=== PATIENT | male | born 1930 | race African-American/Black ===

== ENCOUNTER 2016-05-21 16:31 | Inpatient (IN) | payer MEDICARE, OTHER ==
--- NOTE | ~2016-05-21 | CN ---
Consultation Report [facility] [address] [facility] [place]. [address] NAME: MATHEUS RAGLAND : 32 STATUS : ADM IN [facility]#: [id number] AGE: 86 ADM/REG DATE : 05/21/16 MR#: [id number] REPORT SERV DATE: 05/22/16 DICTATED BY: RENARD TIDWELL DATE: 05/22/16 REPORT STATUS : Draft TRANSCRIBED BY: MODTressa DATE: 05/22/16 CARDIOLOGY CONSULTATION NOTE DATE OF CONSULTATION: 05/22/2016 REASON FOR CONSULTATION: Newly diagnosed atrial fibrillation with rapid ventricular response. HISTORY OF PRESENT ILLNESS: Mr. Ragland is an 86-year-old man with no previous cardiovascular history, excepting the possible history of undiagnosed murmur. The patient presently is in moderate respiratory distress, and a transfer to the intensive care unit is in progress. The patient is unable to provide useful history at this time. History is obtained from the medical records and also from the patient's , who is currently present at the bedside. The patient apparently has history of a hemorrhagic stroke several years ago. The believes that this is from an intracranial aneurysm. The patient did not require craniotomy for treatment however. He apparently has had decreased baseline mental status since his stroke. However, over the last five days, the patient has had insidious onset of fatigue and confusion. The patient was finally brought to the office of his primary care provider yesterday. The patient was found to be in atrial fibrillation with a rapid ventricular response. The patient was brought to the emergency room. He was started on a Cardizem drip. At this time, the patient's heart rate is well controlled, though the patient has suffered progressing decline in his mental status. He is currently on BiPAP with hypercarbic respiratory failure. The patient is to be transferred to the Cardiovascular Intensive Care Unit for further management. PAST MEDICAL HISTORY: 1. Hypertension. 2. Hemorrhagic stroke. 3. Hyperlipidemia. 4. Glaucoma. PAST SURGICAL HISTORY: Noncontributory. FAMILY HISTORY: Unknown. SOCIAL HISTORY: The patient apparently has no history of tobacco use. He consumes alcohol rarely and lives at home with his . ALLERGIES: THE PATIENT HAS AN ALLERGY TO NAPROSYN. HOME MEDICATIONS: 1. Albuterol nebulizers q.a.m. as needed. Consultation Report [facility] [address] [place]. [address] NAME: MATHEUS RAGLAND : 32 STATUS : ADM IN PAT#: [id number] AGE: 86 ADM/REG DATE : 05/21/16 MR#: [id number] REPORT SERV DATE: 05/22/16 DICTATED BY: RENARD TIDWELL DATE: 05/22/16 REPORT STATUS : Draft TRANSCRIBED BY: MELBA DATE: 05/22/16 2. Aspirin 81 mg p.o. daily. 3. Benazepril 20 mg p.o. daily. 4. Lumigan 0.01% ophthalmologic drops to both eyes daily. 5. Azopt ophthalmologic drops to both eyes twice daily. 6. Ibuprofen 600 mg p.o. twice daily as needed. 7. Multivitamin one tablet daily. 8. Crestor 20 mg p.o. at bedtime. 9. Vitamin A/vitamin C/vitamin E/zinc/copper supplement. REVIEW OF SYSTEMS: The patient is unable to provide a meaningful review of systems at this time. PHYSICAL EXAMINATION: VITAL SIGNS: The patient's heart rate is presently 92 beats per minute, temperature is 97.8 degrees Fahrenheit, blood pressure is 107/77 mmHg, respiratory rate is 25 with an oxygen saturation 94% on BiPAP. CONSTITUTIONAL: The patient is an obese elderly -Kyr[place] man, who is minimally responsive to questions, but is arousable. He is tachypneic on BiPAP with grossly decreased sensorium. EYES: PERRL, EOMI, clear conjunctiva. HEAD/MNT: NCAT with moist mucous membranes and grossly normal hard and soft palate. NECK: Supple with no obvious thyromegaly or lymphadenopathy CARDIOVASCULAR: Difficult exam due to transmitted upper airway sounds. There is an irregularly irregular rhythm with a variable S1. There is a grade 2/6 mid-peaking systolic murmur heard at the right upper sternal border. The jugular venous pressure could not be estimated. PULMONARY: Difficult exam; however, there are scattered bibasilar rales with globally decreased air movement. ABDOMINAL: Soft, obese, nontender with no gross organomegaly noted. EXTREMITIES: There is trace edema at the ankles bilaterally. MUSCULOSKELETAL: Grossly normal strength and range of motion in all extremities INTEGUMENTARY: Skin appears intact with no bruises, wounds or active lesions noted NEURO: Neurologic exam could not be performed. DATA: The 12-lead EKG: The patient's 12-lead EKG shows atrial fibrillation with a ventricular rate of 123 beats per minute. There are nonspecific ST/T-wave abnormalities. Chest x-ray: The chest x-ray is suggestive of mild pulmonary vascular congestion. CBC: The CBC shows a white blood cell count 7.6, hemoglobin 12, hematocrit 39, platelets 197. Chemistry profile shows sodium of 141, potassium 4.8, chloride is 102, CO2 of 33, BUN 55, creatinine 1.7, glucose is 98, albumin is 3.4. Troponin I is 0.06. B type natriuretic peptide is elevated at 526. A second troponin I is also 0.06. TSH is 2.07. The patient's Consultation Report [address] [place]. [address] NAME: MATHEUS RAGLAND : 32 STATUS : ADM IN [facility]#: [id number] AGE: 86 ADM/REG DATE : 05/21/16 MR#: [id number] REPORT SERV DATE: 05/22/16 DICTATED BY: RENARD TIDWELL DATE: 05/22/16 REPORT STATUS : Draft TRANSCRIBED BY: MELBA DATE: 05/22/16 serum ammonia is 61. Repeat ABG shows a pH of 7.18, pCO2 of 101, and pO2 of 83 on 32% FiO2. Urinalysis is not available. There is no CT scan of the head available. An echocardiogram is pending at this time. ASSESSMENT AND PLAN: 1. Altered mental status and hypercarbic respiratory failure. At this time, I do not feel that the patient's respiratory failure is primarily of cardiac etiology. The patient's heart rate is reasonably well controlled at this time on a Cardizem drip. The patient will be transferred to the CCU as planned for management of his respiratory failure. The patient will most likely require endotracheal intubation. Given the patient's altered mental status, a CT scan is recommended. Should this show no evidence of bleeding or recent stroke, consider starting a heparin drip for stroke prophylaxis given the patient's atrial fibrillation. 2. Systolic murmur. An echocardiogram is pending. The murmur is suggestive of mild aortic stenosis, though more significant valvular disease cannot be excluded at this time. The patient's LV systolic and diastolic function will be evaluated. We will consider diuresis after the patient has been otherwise stabilized. 3. Evaluation for obstructive sleep apnea. The patient has an apparent history of witnessed apneic events according to his . The reports that the patient has had a sleep study in the past which was abnormal, though this is not available. I have a high suspicion that many of the patient's symptoms may be due to untreated advanced sleep-disordered breathing. Thank you for allowing me to participate in the care Mr. Ragland. The Cardiology Service will continue to follow the patient closely during this hospital admission. MAYELA/MELBA Renard Tidwell MD / [id number] CC: Russ Fuller M.D.
--- NOTE | ~2016-05-21 | HP ---
History And Physical [address] [id number] [facility] [place]. [address] NAME: MATHEUS MYERS : 32 STATUS : ADM IN [facility]#: [id number] AGE: 86 ADM/REG DATE : 05/21/16 MR#: [id number] REPORT SERV DATE: 05/22/16 DICTATED BY: RONAL RAPP DATE: 05/21/16 REPORT STATUS : Draft TRANSCRIBED BY: MODL DATE: 05/21/16 DATE OF ADMISSION: 05/21/2016 CHIEF COMPLAINT: Shortness of breath and atrial fibrillation. HISTORY OF PRESENT ILLNESS: This is an 86-year-old gentleman with no apparent known cardiac history presenting with an atrial fibrillation with RVR as well as shortness of breath. Please note, the patient is an extremely poor historian and he was really not able to give a good history. The patient's was apparently present in the ER, but she is no longer available, and I tried calling her, but all the phone numbers listed did not work. This H and P is formulated from limited history gathered from the patient as well as from ER staff. The patient apparently went to his PCP's office for shortness of breath of unknown duration. At the office, the patient was apparently found to have atrial fibrillation with RVR which is new for him. The patient was referred to the ER for further evaluation and care. In the ER, the patient was found to be afebrile and hemodynamically stable. The patient was indeed found to be in atrial fibrillation with RVR with heart rate in the 130s. The patient was also mildly short of breath and required 2 L of oxygen to maintain adequate oxygen saturations. Initial lab evaluation was fairly benign with borderline troponin and slightly elevated BNP levels. EKG confirmed atrial fibrillation with RVR. Internal medicine consultation was requested for admission of the patient for further evaluation and care. REVIEW OF SYSTEMS: The patient denies any fevers or chills. Also, 14-point review of systems reviewed and negative other than mentioned above although I doubt the patient's ability to answer all the review of systems questions correctly. MEDICATIONS: 1. Albuterol nebulizer once in the morning and once in the evening as needed. 2. Aspirin 81 mg p.o. daily. 3. Lotensin 20 mg p.o. daily. 4. Lumigan eye drops. 5. Alphagan eye drops. 6. Azopt eyedrops. 7. Motrin 600 mg p.o. b.i.d. 8. Centrum one tab p.o. daily. 9. Crestor 20 mg p.o. at bedtime. 10.ICaps multivitamins p.o. b.i.d. ALLERGIES: NAPROXEN. PAST MEDICAL HISTORY: 1. Hypertension. 2. Hyperlipidemia. 3. Glaucoma. History And Physical [address] [address] NAME: MATHEUS MYERS : 32 STATUS : ADM IN PAT#: [id number] AGE: 86 ADM/REG DATE : 05/21/16 MR#: [id number] REPORT SERV DATE: 05/22/16 DICTATED BY: RONAL RAPP DATE: 05/21/16 REPORT STATUS : Draft TRANSCRIBED BY: MELBA DATE: 05/21/16 4. The patient apparently had a TIA a couple of years ago, and since then, the patient has been steadily declining. PAST SURGICAL HISTORY: Unknown. FAMILY HISTORY: Unknown. SOCIAL HISTORY: The patient does not smoke, consumes alcohol rarely, and he lives at home with his . PHYSICAL EXAMINATION: VITAL SIGNS: Temperature 98.7, blood pressure 135/82, pulse 130, respiratory rate is 19, and saturating 90% on 2 L of oxygen per nasal cannula. NEUROLOGIC: The patient is alert and oriented x3, but he is extremely poor historian. The patient otherwise exhibits no obvious focal neurologic deficits. GENERAL: The patient is awake. Does not appear to be in acute distress, and he is cooperative. NECK: No JVD. No lymphadenopathy. Normal thyroid. CHEST: No midline sternotomy scar and no tenderness to palpation. LUNGS: The patient has poor aeration to both lungs and some crackles and congestion across both lungs. The patient otherwise has fairly normal respiratory effort on 2 L of oxygen at rest. CARDIOVASCULAR: The patient has an irregular rhythm and tachycardic. Otherwise, no murmurs, rubs, or gallops, and PMI is nondisplaced. ABDOMEN: Soft and nontender, with active bowel sounds and no organomegaly. EXTREMITIES: No edema. Normal distal pulses. No calf tenderness. SKIN: Clean, dry, warm, and intact. LABORATORY DATA: Sodium is 141, potassium 4.8, chloride 102, BUN 55, creatinine 1.70, glucose 98, and calcium 8.9. LFTs are within normal limits. White blood cell count is 7.6, hemoglobin 12.1, and platelets 197. INR is 1.3, troponin is 0.06, and BNP is 525.6. Chest x-ray is personally interpreted, and although it did not show any pneumonia or effusions, it did show some right-sided atelectasis, and from my exam, it appears to be congested. ASSESSMENT: This is an 86-year-old gentleman with history of hypertension, hyperlipidemia, and glaucoma presenting with a new-onset atrial fibrillation. 1. New-onset atrial fibrillation with RVR, the patient apparently does not have any history of atrial fibrillation or any cardiac illnesses and he does not have a patternmaker. 2. Renal insufficiency with creatinine of 1.70, unknown baseline. 3. The patient also appears to be volume overloaded/possible congestive heart failure. 4. Hypertension. 5. Hyperlipidemia. 6. Glaucoma. PLAN: My plan is to admit the patient under telemetry monitoring. The patient will be given oxygen support and bronchodilator therapies. The patient will also be continued on the History And Physical [address] [address] NAME: MATHEUS MYERS MARCO A : 32 STATUS : ADM IN [facility]#: [id number] AGE: 86 ADM/REG DATE : 05/21/16 MR#: [id number] REPORT SERV DATE: 05/22/16 DICTATED BY: RONAL RAPP DATE: 05/21/16 REPORT STATUS : Draft TRANSCRIBED BY: MODTressa DATE: 05/21/16 Cardizem drip for better rate control. The patient will also be given IV Lasix diuresis, and I will check ins and outs and electrolytes and renal function daily as the patient is given the diuresis. I will also check serial troponins and TSH. Echocardiogram will be ordered, and I will also have Cardiology come and see the patient. Otherwise, for the rest of the stable past medical conditions including hypertension and hyperlipidemia, I will continue home medications. Standard DVT prophylaxis. The patient is full code at this time. LISA/MELBA Ronal Rapp MD / [id number] CC: Lucy Henson D.O.
--- NOTE | ~2016-05-21 | DS ---
Discharge Summary [facility] [address] [place]. [address] NAME: MATHEUS MYERS : 32 STATUS : DIS IN PAT#: [id number] AGE: 86 ADM/REG DATE : 05/21/16 MR#: [id number] REPORT SERV DATE: 06/01/16 DICTATED BY: SINDHU STOCKTON DATE: 06/01/16 REPORT STATUS : Draft TRANSCRIBED BY: MELBA DATE: 06/01/16 ADMISSION DATE: 05/21/2016 DISCHARGE DATE: 06/01/2016 DIAGNOSES: 1. Hypercapnic respiratory failure. 2. Atrial fibrillation with rapid ventricular response. 3. Encephalopathy secondary to hypercapnic respiratory failure, resolved. 4. Acute on chronic dysphagia. 5. Suspected obstructive sleep apnea. 6. Debility. CONSULTANTS: Cardiology, Dr. Tidwell and Critical Care, Dr. Ankush Yuan and Dr. Russ Menjivar. FOLLOWUP: The patient should follow up with Dr. Tidwell, the test and turn up technician, as needed and follow up with the primary care physician. The patient is being discharged home with [facility]. DISCHARGE MEDICATIONS: Eliquis 5 mg p.o. b.i.d., baby aspirin 81 mg p.o. daily, brimonidine one drop ophthalmic b.i.d., Voltaren topical gel to right foot q.6 hours p.r.n., digoxin 0.25 mg p.o. daily, Lumigan 0.01% ophthalmic drops q.h.s. per home dose, multivitamin, metoprolol tartrate 25 mg p.o. b.i.d., DuoNebs q.6 hours, albuterol neb p.r.n., Crestor 20 mg p.o. q.h.s. per home dose, Symbicort 160/4.5 two puffs inhaled b.i.d. HOSPITAL COURSE: Please see H and P dictated by Dr. Rapp. This is an 86 years old male with a past medical history of hypertension, hyperlipidemia, TIA, and worsening physical decline. The patient presented to [facility] ER with a chief complaint of shortness of breath and worsening debility, and found to be in atrial fibrillation with RVR. Apparently, the patient is already on home oxygen at home. Cardiology was consulted. The patient was started on a Cardizem drip. However, that day, the patient was seen by Dr. Russ Fuller and found to be in hypercapnic respiratory distress, placed on BiPAP, and transferred to the ICU and also treated for COPD and suspected underlying obstructive sleep apnea. The patient's metabolic encephalopathy was secondary to his hypercapnic failure. While in ICU, his mental status waxed and waned. He remained on BiPAP for the majority of the time and felt to be dependent on BiPAP and also required a Dobbhoff tube during that time for nutrition. Palliative Care was consulted while the patient was in ICU and due to the patient's status, the final decision with family/ was to return home with hospice. Critical Care discontinued the patient's BiPAP, placed the patient on oxygen, and the patient was transitioned to a regular bed and at that time, I attended care for the patient initiating on 05/30/2016, for which, at that time, the patient continued to do well on oxygen. However, it was recommended in order to consider BiPAP q.h.s. and also to consider an outpatient sleep study for suspected underlying obstructive sleep apnea. This was discussed with the patient and his . The patient remained alert and oriented while on regular floor. was informed that keeping his carbon dioxide level at baseline is for life- Discharge Summary [address] [address] NAME: MATHEUS MYERS MARCO A : 32 STATUS : DIS IN [facility]#: [id number] AGE: 86 ADM/REG DATE : 05/21/16 MR#: [id number] REPORT SERV DATE: 06/01/16 DICTATED BY: SINDHU STOCKTON DATE: 06/01/16 REPORT STATUS : Draft TRANSCRIBED BY: MELBA DATE: 06/01/16 saving measures. However, the patient refused any kind of face mask, does not want CPAP or BiPAP and the agrees. The patient has Speech Pathology consultation with modified barium swallow with recommendation of pureed diet and thin liquids. According to the , the patient has known chronic dysphagia and has been on a special diet prior to admission. Initially also after being transferred to the floor, the patient patient's was considering inpatient rehab considering that the patient's mental status had improved and the patient was tolerating a diet. However later, the once again changed her mind back to returning home with hospice due to the patient refusing inpatient rehab and wanted to follow the patient's wishes. Therefore, the patient and wanted to return to home with hospice. The patient refuses any kind of sleep study and does not want BiPAP or CPAP, and understands it is for life-saving measures. The patient was continued on digoxin and metoprolol for atrial fibrillation, rate control, and also initiated on Eliquis by Cardiology. The patient is to continue with medications at discharge, which has been explained to the . The patient was discharged to home with [facility]. This discharge required greater than 35 minutes. LIAT/MELBA Sindhu Stockton M.D. / [id number] CC: Lucy Perez
--- NOTE | ~2016-05-21 | DS ---
Discharge Summary [address] [place]. [address] NAME: MATHEUS MYERS : 32 STATUS : DIS IN PAT#: [id number] AGE: 86 ADM/REG DATE : 05/21/16 MR#: [id number] REPORT SERV DATE: 06/01/16 DICTATED BY: SINDHU STOCKTON DATE: 06/01/16 REPORT STATUS : Draft TRANSCRIBED BY: MELBA DATE: 06/01/16 ADMISSION DATE: 05/21/2016 DISCHARGE DATE: 06/01/2016 ADDENDUM: The patient will not be discharged with Eliquis. According to the , the patient has a history of recurrent epistasis in the past and easily bleeds, and also had a history of a hemorrhagic CVA approximately four years ago. The patient did have a mild streak of blood from productive cough. Eliquis was held. Remained stable; however, due to the patient's history of recurrent epistasis and history of hemorrhagic CVA, his Eliquis was discontinued. He will not be discharged with Eliquis, but will continue with aspirin. The understands that aspirin alone does not have the best preventive treatment for ischemic CVA from atrial fibrillation. She understands, but wants to continue to hold Eliquis at this time. LIAT/MELBA Sindhu Stockton M.D. / [id number] CC: Lucy Perez
--- NOTE | ~2016-05-21 | CN ---
Consultation Report [facility] [address] [place]. [address] NAME: MATHEUS MYERS : 32 STATUS : ADM IN [facility]#: [id number] AGE: 86 ADM/REG DATE : 05/21/16 MR#: [id number] REPORT SERV DATE: 05/22/16 DICTATED BY: JOSE YUAN DATE: 05/22/16 REPORT STATUS : Draft TRANSCRIBED BY: MODL DATE: 05/22/16 CONSULTATION DATE OF CONSULTATION: 05/22/2016 TIME: 3 p.m. The patient is seen in room 6113. HISTORY OF PRESENT ILLNESS: He is an 86-year-old male patient admitted to the hospital this time because of atrial fibrillation with RVR. According to his , he has been progressively more weak over the past several months with walking and ability to stay awake. Falls asleep constantly. Legs have been swelling. When I arrived, Dr. Fuller had placed the patient on BiPAP because of hypercapnic respiratory acidosis. PAST MEDICAL HISTORY: Significant for hemorrhagic CVA, taken care of at [place] in the past. He has had a previous operation for a trigeminal neuralgia. He has macular degeneration, glaucoma. REVIEW OF SYSTEMS: As noted above. No history of diabetes. No prior history of heart or cardiac disease that they are aware of. 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 FAMILY HISTORY: Noncontributory. ALLERGIES: NAPROSYN. HOME MEDICATIONS: Albuterol nebulizer, aspirin 81 mg daily, Lotensin 20, Lumigan 0.01%, drops of Alphagan P ophthalmic solution 0.15, Azopt which is brinzolamide 1 drop OPH twice a day both eyes, Motrin 600 mg twice a day p.r.n., , Crestor 20 daily. Vitamin A, vitamin C, vitamin E, zinc and copper capsules, 1 capsule twice a day. PHYSICAL EXAMINATION: VITAL SIGNS: Currently, his vital signs show a blood pressure of 103/56, pulse 93, temperature 97.8, sat 92. GENERAL: The patient is an obese, male. HEENT: Normocephalic. Sclerae and conjunctivae are clear. NECK: Supple. Neck is large. CHEST: Decreased breath sounds. No wheezing. CARDIAC: S1, S2. Slightly irregular. ABDOMEN: Soft and nontender. No masses or organomegaly. . EXTREMITIES: No clubbing or cyanosis. Slight edema, +1. Pulses are palpable. NEUROLOGIC: Grossly intact except for mild weakness in the left upper extremity. LABORATORY DATA: Sodium is 142, potassium 4.9, chloride 103, CO2 39, BUN 55, creatinine Consultation Report [place] [id number] [facility] [place]. [address] NAME: MATHEUS MYERS : 32 STATUS : ADM IN [facility]#: [id number] AGE: 86 ADM/REG DATE : 05/21/16 MR#: [id number] REPORT SERV DATE: 05/22/16 DICTATED BY: JOSE YUAN DATE: 05/22/16 REPORT STATUS : Draft TRANSCRIBED BY: MODL DATE: 05/22/16 1.62, glucose 100, calcium 9.0. Troponin 0.06. H and H 7.6 and 29.2, white count 8600, platelet count 5000. PH 7.18, pCO2 of 101, PO2 of 83, 36%. TSH 2.02. Troponin 0.06. Chest x-ray also clear. IMPRESSION: 1. Hypercapnic respiratory failure. 2. Probably obesity hypoventilation syndrome. 3. Chronic obstructive pulmonary disease. 4. Obstructive sleep apnea. 5. Previous history of hemorrhagic stroke. 6. Metabolic encephalopathy, probably induced by hyperventilation. PLAN: Place on BiPAP. Move to the ICU. Continue bronchodilator protocol. RP/JACEKL Jose Yuan M.D. / [id number] CC: Lucy Edwards D.O.
--- NOTE | ~2016-05-21 | IDS ---
Interim Discharge Summary [facility] [address] [place]. [address] NAME: MATHEUS MYESR : 34 STATUS : ADM IN PAT#: [id number] AGE: 86 ADM/REG DATE : 05/21/16 MR#: [id number] REPORT SERV DATE: 05/27/16 DICTATED BY: GEOVANNA DUMONT DATE: 05/27/16 REPORT STATUS : Draft TRANSCRIBED BY: MODL DATE: 05/27/16 ADMISSION DATE: 05/21/2016 DISCHARGE DATE: DATE OF INTERIM SUMMARY: 05/27/2016. INTERIM DIAGNOSES: 1. Acute hypercapnic respiratory failure. 2. Atrial fibrillation with rapid ventricular response. 3. Acute encephalopathy. 4. Dysphagia. 5. History of cerebrovascular accident. 6. Obstructive sleep apnea. 7. Possible obesity hypoventilation syndrome. ICU COURSE: Please see dictated H and P for full patient presentation and history. BRIEF SUMMARY: This is an 86-year-old gentleman with a past medical history of CVA with declining mental status at home recently, who presented to the hospital with rapid ventricular response, acute hypercapnic respiratory failure, and volume overload. The patient was admitted briefly to the floor, but then had to be moved subsequently to the ICU on the day of admission for BiPAP therapy and hypercapnic respiratory failure as well as a diltiazem drip to control the atrial fibrillation. The patient has not made a whole lot of progress this week in the ICU. He has remained almost BiPAP dependent for his hypercapnic respiratory failure likely due to underlying sleep apnea and/or obesity hypoventilation syndrome in the setting of poorly controlled heart rate. He is being followed by Cardiology, who has been helping manage his heart rate. He has been on and off both amiodarone drips and diltiazem drips during the week and has had episodes of bradycardia as well. So, it has been difficult to control this. The patient has been encephalopathic throughout the week that waxes and wanes. It is probably related to his hypercapnia as well. He also has dysphagia and has been kept n.p.o. and has tube feeds going. The patient's family says he had declining mental status before this at home and had a stroke several years ago. Given his lack of progress this week, we had Palliative Care involved. The patient has expressed wishes and his agrees and he is a do not resuscitate. Currently, the goal is to attempt to get the patient to where he is off BiPAP for most of the day and rate control on p.o. medications in an attempt to potentially get the patient home with hospice. I am going to be marking this week, and we will try to keep him off the BiPAP during the day and sleep with the night and then we and Palliative Care will re- evaluate on Saturday, how he is doing and work on disposition plans. The [employer] dining car stewardess will assume care of the patient tomorrow. Please call if you have any questions. ERIK/MELBA Geovanna Barba Interim Discharge Summary [address] [address] NAME: MATHEUS MYERS MARCO A : 34 STATUS : ADM IN PAT#: [id number] AGE: 86 ADM/REG DATE : 05/21/16 MR#: [id number] REPORT SERV DATE: 05/27/16 DICTATED BY: GEOVANNA DUMONT DATE: 05/27/16 REPORT STATUS : Draft TRANSCRIBED BY: MELBA DATE: 05/27/16 MD Otto / [id number] CC: Geovanna Fuller M.D.
[2016-05-21 17:18] LABS: BASOPHILS 0.5 %; BASOPHILS ABSOLUTE 0.04 10/3/uL (0.0-0.16); EOSINOPHILS 1.1 %; EOSINOPHILS ABSOLUTE 0.08 10/3/uL (0.0-0.53); HEMATOCRIT 39.1 % (40.0-51.0); HEMOGLOBIN 12.1 g/dL (13.6-17.8); IMMATURE GRANULOCYTES 0.4 %; IMMATURE GRANULOCYTES ABSOLUTE 0.03 10/3/uL (0.0-0.11); LYMPHOCYTES 13.1 %; MEAN CORPUSCULAR HEMOGLOB 28.4 pg (26.0-34.0); MEAN PLATELET VOLUME 10.2 fL (9.2-13.0); MONOCYTES 14.1 %; MONOCYTES ABSOLUTE 1.07 10/3/uL (0.21-1.20); NEUTROPHILS 70.8 %; NEUTROPHILS ABSOLUTE 5.39 10/3/uL (2.02-8.40); PLATELET COUNT 197 10/3/uL (150-400); RBC DISTRIBUTION WIDTH 14.8 % (12.0-16.0); RED CELL COUNT 4.26 10/6/uL (4.7-6.1); WHITE BLOOD CELLS 7.6 10/3/uL (4.5-10.5)
[2016-05-21 17:19] LABS: MANUAL DIFF NO %; MEAN CORPUS HGB CONC 30.9 g/dL (32.0-36.0); MEAN CORPUSCULAR VOLUME 91.8 fL (80-100)
[2016-05-21] MEDS ORDERED: ICAPS AREDS SO1 EACH PO (17:21)
[2016-05-21] MEDS ORDERED: AZOPT OPH (17:22)
[2016-05-21] MEDS ORDERED: ALPHAGAN OPH (17:22)
[2016-05-21] MEDS ORDERED: LUMIGAN2.5 ML OPH (17:22)
[2016-05-21] MEDS ORDERED: CRESTOR20 MG PO (17:23)
[2016-05-21] MEDS ORDERED: CENTRUM PO (17:23)
[2016-05-21] MEDS ORDERED: IBU600 PO (17:23)
[2016-05-21] MEDS ORDERED: ASAB PO (17:23)
[2016-05-21] MEDS ORDERED: LOTE20 PO (17:24)
[2016-05-21] MEDS ORDERED: ALBUTEROL0.083 % INH ×2 (17:25)
[2016-05-21 17:30] LABS: INTERNATIONAL NORMAL RATI 1.3 UNITS (-); PROTIME (NOT ORD) 15.7 SEC (12.0-14.5)
[2016-05-21 17:35] LABS: A/G RATIO 0.9 (0.7-1.9); ALBUMIN 3.4 G/DL (3.5-5.0); ALKALINE PHOSPHATASE 60 U/L (45-117); BUN (BLOOD UREA NITROGEN) 55 MG/DL (6-23); CALCIUM, SERUM 8.9 MG/DL (8.5-10.4); CHLORIDE, SERUM 102 MMOL/L (96-112); CO2 (CARBON DIOXIDE) 33 MMOL/L (24-34); GFR AFRICAN AMERICAN 42 ML/MIN (>=60); GFR NON AFRICAN AMERICAN 36 ML/MIN (>=60); GLOBULIN 3.8 G/DL (2.5-4.1); GLUCOSE, SERUM 98 MG/DL (60-99); POTASSIUM, SERUM 4.8 MMOL/L (3.5-5.3); SGOT(AST) 10 U/L (5-40); SGPT(ALT) 25 U/L (5-65); SODIUM, SERUM 141 MMOL/L (135-148); TOTAL BILIRUBIN 0.4 MG/DL (0-1.2); TOTAL PROTEIN 7.2 G/DL (6.0-8.5); TROPONIN I 0.06 NG/ML (<0.05)
[2016-05-21 22:17] LABS: ULTRASENSITIVE TSH 2.07 MCIU/ML (0.358-3.740)
[2016-05-21 22:18] LABS: TROPONIN I 0.06 NG/ML (<0.05)
[2016-05-22 03:28] LABS: BASOPHILS 0.6 %; BASOPHILS ABSOLUTE 0.05 10/3/uL (0.0-0.16); EOSINOPHILS 1.2 %; HEMATOCRIT 39.2 % (40.0-51.0); HEMOGLOBIN 11.6 g/dL (13.6-17.8); IMMATURE GRANULOCYTES 0.6 %; IMMATURE GRANULOCYTES ABSOLUTE 0.05 10/3/uL (0.0-0.11); LYMPHOCYTES 13.9 %; LYMPHOCYTES ABSOLUTE 1.19 10/3/uL (0.67-4.30); MANUAL DIFF NO %; MEAN CORPUS HGB CONC 29.6 g/dL (32.0-36.0); MEAN CORPUSCULAR HEMOGLOB 27.4 pg (26.0-34.0); MEAN CORPUSCULAR VOLUME 92.7 fL (80-100); MEAN PLATELET VOLUME 10.2 fL (9.2-13.0); MONOCYTES 16.3 %; NEUTROPHILS 67.4 %; NEUTROPHILS ABSOLUTE 5.78 10/3/uL (2.02-8.40); PLATELET COUNT 205 10/3/uL (150-400); RBC DISTRIBUTION WIDTH 14.9 % (12.0-16.0); RED CELL COUNT 4.23 10/6/uL (4.7-6.1); WHITE BLOOD CELLS 8.6 10/3/uL (4.5-10.5)
[2016-05-22 03:47] LABS: BUN (BLOOD UREA NITROGEN) 55 MG/DL (6-23); CALCIUM, SERUM 9.1 MG/DL (8.5-10.4); CHLORIDE, SERUM 103 MMOL/L (96-112); CO2 (CARBON DIOXIDE) 34 MMOL/L (24-34); CREATININE 1.62 MG/DL (0.70-1.30); GFR AFRICAN AMERICAN 45 ML/MIN (>=60); GFR NON AFRICAN AMERICAN 38 ML/MIN (>=60); GLUCOSE, SERUM 100 MG/DL (60-99); POTASSIUM, SERUM 4.9 MMOL/L (3.5-5.3); SODIUM, SERUM 142 MMOL/L (135-148)
[2016-05-22 03:48] LABS: TROPONIN I 0.06 NG/ML (<0.05)
[2016-05-22 11:57] LABS: ALLENS TEST Pos; BE (BASE EXCESS) 5.4 MEQ/L (0 +/- 2.5); CARBOXYHEMOGLOBIN 0.9 % (0-3); DEVICE NC; HCO3 (ACTUAL BICARBONATE) 37.2 MEQ/L (23-27); HEMOBLOGIN CONTENT 13.2 G/DL (14-18); INSTRUMENT SERIAL # 35151; METHEMOGLOBIN 0.5 % (0-3); O2 CONTENT 17.3 VOL% (18-24); PCO2 (CO2 TENSION) 101 MMHG (35-45); PO2 (O2 TENSION) 83 MMHG (79-93); SAMPLE Arterial; pH 7.18 (7.37-7.43)
[2016-05-22 13:25] LABS: FERRITIN 90 NG/ML (26-388); IRON BINDING CAPACITY 244 MCG/DL (250-450); IRON, SERUM 42 MCG/DL (35-150)
[2016-05-22 15:19] LABS: ALLENS TEST Pos; BE (BASE EXCESS) 4.4 MEQ/L (0 +/- 2.5); BIPAP 18/10 cm.H2O; HCO3 (ACTUAL BICARBONATE) 35.1 MEQ/L (23-27); INSTRUMENT SERIAL # 35151; METHEMOGLOBIN 0.5 % (0-3); O2 CONTENT 17.1 VOL% (18-24); OPERATOR ID 35188; PCO2 (CO2 TENSION) 89 MMHG (35-45); PO2 (O2 TENSION) 85 MMHG (79-93); SAMPLE Arterial; pH 7.21 (7.37-7.43)
[2016-05-22 18:01] LABS: ALLENS TEST Pos; BE (BASE EXCESS) 4.4 MEQ/L (0 +/- 2.5); BIPAP 18/10 cm.H2O; CARBOXYHEMOGLOBIN 0.7 % (0-3); HCO3 (ACTUAL BICARBONATE) 34.5 MEQ/L (23-27); HEMOBLOGIN CONTENT 12.7 G/DL (14-18); INSTRUMENT SERIAL # 35151; METHEMOGLOBIN 0.5 % (0-3); O2 CONTENT 17.3 VOL% (18-24); OPERATOR ID 35188; PCO2 (CO2 TENSION) 84 MMHG (35-45); PO2 (O2 TENSION) 106 MMHG (79-93); SAMPLE Arterial; pH 7.23 (7.37-7.43)
[2016-05-22 20:51] LABS: ASCORBIC ACID (UR NOT ORDER) 40 (NEG); BILIRUBIN, URINE NEGATIVE (NEG); KETONE, URINE NEGATIVE (NEG); LEUKOCYTE ESTERASE(NOT OR SMALL (NEG); WBC (NOT ORDERED) (RFLEX) 18 (0-5)
[2016-05-23 05:16] LABS: HEMATOCRIT 39.1 % (40.0-51.0); HEMOGLOBIN 11.7 g/dL (13.6-17.8); MANUAL DIFF YES %; MEAN CORPUS HGB CONC 29.9 g/dL (32.0-36.0); MEAN CORPUSCULAR HEMOGLOB 27.7 pg (26.0-34.0); MEAN CORPUSCULAR VOLUME 92.7 fL (80-100); MEAN PLATELET VOLUME 10.6 fL (9.2-13.0); PLATELET COUNT 176 10/3/uL (150-400); RBC DISTRIBUTION WIDTH 14.9 % (12.0-16.0); RED CELL COUNT 4.22 10/6/uL (4.7-6.1); WHITE BLOOD CELLS 8.4 10/3/uL (4.5-10.5)
[2016-05-23 05:49] LABS: BAND NEUTROPHILS 3 %; BASOPHILS 2 %; BASOPHILS ABSOLUTE (CALC) 0.17 10/3/uL (0.0-0.16); LYMPHOCYTES 7 %; LYMPHOCYTES ABSOLUTE (CALC) 0.59 10/3/uL (0.67-4.30); MONOCYTES 7 %; MONOCYTES ABSOLUTE (CALC) 0.59 10/3/uL (0.21-1.20); NEUTROPHILS ABSOLUTE (CALC) 7.06 10/3/uL (2.02-8.40); SEGMENTED NEUTROPHIL (0) 81 %; TOTAL NUCLEATED CELLS 100
[2016-05-23 05:50] LABS: PLATELET ESTIMATE ADQ (ADEQUATE); RBC MORPHOLOGY NORM (NORMAL)
[2016-05-23 05:51] LABS: BE (BASE EXCESS) 6.9 MEQ/L (0 +/- 2.5); BIPAP 18/10 cm.H2O; CARBOXYHEMOGLOBIN 0.5 % (0-3); HCO3 (ACTUAL BICARBONATE) 36.3 MEQ/L (23-27); HEMOBLOGIN CONTENT 12.7 G/DL (14-18); INSTRUMENT SERIAL # 35151; METHEMOGLOBIN 0.5 % (0-3); O2 CONTENT 16.9 VOL% (18-24); PCO2 (CO2 TENSION) 79 MMHG (35-45); PO2 (O2 TENSION) 84 MMHG (79-93); SAMPLE Arterial; pH 7.28 (7.37-7.43)
[2016-05-23 07:49] LABS: BUN (BLOOD UREA NITROGEN) 54 MG/DL (6-23); CALCIUM, SERUM 9.1 MG/DL (8.5-10.4); CHLORIDE, SERUM 102 MMOL/L (96-112); CO2 (CARBON DIOXIDE) 35 MMOL/L (24-34); CREATININE 1.57 MG/DL (0.70-1.30); GFR AFRICAN AMERICAN 46 ML/MIN (>=60); GFR NON AFRICAN AMERICAN 40 ML/MIN (>=60); GLUCOSE, SERUM 85 MG/DL (60-99); SODIUM, SERUM 144 MMOL/L (135-148); TROPONIN I 0.05 NG/ML (<0.05)
[2016-05-23 12:00] LABS: A/G 1.35 RATIO (0.9-2.10); ALB RELATIVE % 57.4 % (60.0-89.0); ALBUMIN (ELECTRO) 4.02 GM/DL (3.2-5.5); ALPHA 1 (ELECTRO) 0.22 GM/DL (0.1-0.4); ALPHA 1 RELAT % (NOT ORD) 3.2 % (1.0-4.0); ALPHA 2 (ELECTRO) 0.69 GM/DL (0.5-1.10); ALPHA 2 RELAT % 9.8 % (4.5-26.0); BETA GLOBULIN (SPE) 0.76 GM/DL (0.60-1.30); BETA RELATIVE % 10.8 % (9.0-22.0); GAMMA GLOBULIN (SPE) 1.32 G/DL (0.70-1.60); GAMMA RELAT % 18.8 % (6.0-22.0)
[2016-05-23 15:07] LABS: ALLENS TEST Pos; BE (BASE EXCESS) 8.3 MEQ/L (0 +/- 2.5); CARBOXYHEMOGLOBIN 0.5 % (0-3); DEVICE VM; HCO3 (ACTUAL BICARBONATE) 36.7 MEQ/L (23-27); HEMOBLOGIN CONTENT 12.9 G/DL (14-18); INSTRUMENT SERIAL # 35151; METHEMOGLOBIN 0.6 % (0-3); PCO2 (CO2 TENSION) 71 MMHG (35-45); PO2 (O2 TENSION) 81 MMHG (79-93); SAMPLE Arterial; pH 7.33 (7.37-7.43)
[2016-05-24 04:17] LABS: ALLENS TEST Pos; BE (BASE EXCESS) 5.6 MEQ/L (0 +/- 2.5); BIPAP 15/5 cm.H2O; CARBOXYHEMOGLOBIN 0.6 % (0-3); HCO3 (ACTUAL BICARBONATE) 33.6 MEQ/L (23-27); HEMOBLOGIN CONTENT 12.5 G/DL (14-18); INSTRUMENT SERIAL # 35151; METHEMOGLOBIN 0.5 % (0-3); OPERATOR ID 13861; PCO2 (CO2 TENSION) 67 MMHG (35-45); PO2 (O2 TENSION) 70 MMHG (79-93); SAMPLE Arterial; pH 7.32 (7.37-7.43)
[2016-05-24 09:33] LABS: BASOPHILS 0.3 %; BASOPHILS ABSOLUTE 0.03 10/3/uL (0.0-0.16); EOSINOPHILS 0.9 %; EOSINOPHILS ABSOLUTE 0.08 10/3/uL (0.0-0.53); HEMATOCRIT 41.1 % (40.0-51.0); HEMOGLOBIN 12.4 g/dL (13.6-17.8); IMMATURE GRANULOCYTES 0.2 %; IMMATURE GRANULOCYTES ABSOLUTE 0.02 10/3/uL (0.0-0.11); LYMPHOCYTES 10.1 %; LYMPHOCYTES ABSOLUTE 0.87 10/3/uL (0.67-4.30); MEAN CORPUS HGB CONC 30.2 g/dL (32.0-36.0); MEAN CORPUSCULAR HEMOGLOB 27.6 pg (26.0-34.0); MEAN CORPUSCULAR VOLUME 91.3 fL (80-100); MEAN PLATELET VOLUME 10.4 fL (9.2-13.0); MONOCYTES 10.2 %; MONOCYTES ABSOLUTE 0.88 10/3/uL (0.21-1.20); NEUTROPHILS 78.3 %; NEUTROPHILS ABSOLUTE 6.72 10/3/uL (2.02-8.40); PLATELET COUNT 169 10/3/uL (150-400); RBC DISTRIBUTION WIDTH 14.7 % (12.0-16.0); WHITE BLOOD CELLS 8.6 10/3/uL (4.5-10.5)
[2016-05-24 09:38] LABS: MANUAL DIFF NO %
[2016-05-24 09:45] LABS: ALBUMIN 3.2 G/DL (3.5-5.0); CHLORIDE, SERUM 98 MMOL/L (96-112); CO2 (CARBON DIOXIDE) 39 MMOL/L (24-34); CREATININE 1.31 MG/DL (0.70-1.30); GFR AFRICAN AMERICAN 58 ML/MIN (>=60); GFR NON AFRICAN AMERICAN 50 ML/MIN (>=60); POTASSIUM, SERUM 4.4 MMOL/L (3.5-5.3); SODIUM, SERUM 141 MMOL/L (135-148)
[2016-05-24 09:46] LABS: BUN (BLOOD UREA NITROGEN) 44 MG/DL (6-23); GLUCOSE, SERUM 112 MG/DL (60-99)
[2016-05-24 15:08] LABS: A/G RATIO 0.8 (0.7-1.9); ALKALINE PHOSPHATASE 57 U/L (45-117); GLOBULIN 3.9 G/DL (2.5-4.1); PREALBUMIN 15.3 MG/DL (17.0-43.0); SGOT(AST) 16 U/L (5-40); SGPT(ALT) 19 U/L (5-65); TOTAL BILIRUBIN 0.5 MG/DL (0-1.2); TOTAL PROTEIN 7.1 G/DL (6.0-8.5)
[2016-05-25 03:43] LABS: BE (BASE EXCESS) 11.4 MEQ/L (0 +/- 2.5); CARBOXYHEMOGLOBIN 0.9 % (0-3); HCO3 (ACTUAL BICARBONATE) 40.3 MEQ/L (23-27); HEMOBLOGIN CONTENT 12.7 G/DL (14-18); INSTRUMENT SERIAL # 35151; METHEMOGLOBIN 0.4 % (0-3); O2 CONTENT 17.2 VOL% (18-24); PCO2 (CO2 TENSION) 77 MMHG (35-45); PO2 (O2 TENSION) 97 MMHG (79-93); pH 7.34 (7.37-7.43)
[2016-05-25 03:44] LABS: ALLENS TEST Pos; BIPAP 15/5 cm.H2O; OPERATOR ID 23712; SAMPLE Arterial
[2016-05-25 04:59] LABS: CALCIUM, SERUM 8.6 MG/DL (8.5-10.4); CHLORIDE, SERUM 100 MMOL/L (96-112); CO2 (CARBON DIOXIDE) 37 MMOL/L (24-34); CREATININE 1.18 MG/DL (0.70-1.30); GFR AFRICAN AMERICAN 65 ML/MIN (>=60); GFR NON AFRICAN AMERICAN 56 ML/MIN (>=60); PHOSPHORUS, SERUM 3.6 MG/DL (2.5-4.5); POTASSIUM, SERUM 4.2 MMOL/L (3.5-5.3); SODIUM, SERUM 143 MMOL/L (135-148)
[2016-05-25 05:02] LABS: BUN (BLOOD UREA NITROGEN) 34 MG/DL (6-23); GLUCOSE, SERUM 159 MG/DL (60-99)
[2016-05-25 05:29] LABS: BASOPHILS 0.4 %; BASOPHILS ABSOLUTE 0.03 10/3/uL (0.0-0.16); EOSINOPHILS 1.7 %; EOSINOPHILS ABSOLUTE 0.13 10/3/uL (0.0-0.53); HEMOGLOBIN 11.4 g/dL (13.6-17.8); IMMATURE GRANULOCYTES 0.1 %; IMMATURE GRANULOCYTES ABSOLUTE 0.01 10/3/uL (0.0-0.11); LYMPHOCYTES ABSOLUTE 1.08 10/3/uL (0.67-4.30); MEAN CORPUSCULAR HEMOGLOB 27.5 pg (26.0-34.0); MEAN CORPUSCULAR VOLUME 88.9 fL (80-100); MEAN PLATELET VOLUME 10.3 fL (9.2-13.0); MONOCYTES ABSOLUTE 0.23 10/3/uL (0.21-1.20); NEUTROPHILS 80.8 %; NEUTROPHILS ABSOLUTE 6.25 10/3/uL (2.02-8.40); PLATELET COUNT 155 10/3/uL (150-400); RBC DISTRIBUTION WIDTH 14.9 % (12.0-16.0); RED CELL COUNT 4.14 10/6/uL (4.7-6.1); WHITE BLOOD CELLS 7.7 10/3/uL (4.5-10.5)
[2016-05-25 05:31] LABS: HEMATOCRIT 36.8 % (40.0-51.0); MANUAL DIFF NO %
[2016-05-25 05:40] LABS: TROPONIN I 0.06 NG/ML (<0.05)
[2016-05-25 06:21] LABS: ALLENS TEST Pos; BE (BASE EXCESS) 10.4 MEQ/L (0 +/- 2.5); BIPAP 20/8 cm.H2O; CARBOXYHEMOGLOBIN 0.5 % (0-3); HCO3 (ACTUAL BICARBONATE) 38.5 MEQ/L (23-27); INSTRUMENT SERIAL # 35151; METHEMOGLOBIN 0.4 % (0-3); O2 CONTENT 17.5 VOL% (18-24); OPERATOR ID 13861; PCO2 (CO2 TENSION) 69 MMHG (35-45); PO2 (O2 TENSION) 91 MMHG (79-93); SAMPLE Arterial; pH 7.37 (7.37-7.43)
[2016-05-26 05:11] LABS: BUN (BLOOD UREA NITROGEN) 29 MG/DL (6-23); CALCIUM, SERUM 8.5 MG/DL (8.5-10.4); CHLORIDE, SERUM 102 MMOL/L (96-112); CO2 (CARBON DIOXIDE) 34 MMOL/L (24-34); CREATININE 1.11 MG/DL (0.70-1.30); GFR AFRICAN AMERICAN 70 ML/MIN (>=60); GFR NON AFRICAN AMERICAN 61 ML/MIN (>=60); GLUCOSE, SERUM 140 MG/DL (60-99); PHOSPHORUS, SERUM 2.7 MG/DL (2.5-4.5); POTASSIUM, SERUM 3.8 MMOL/L (3.5-5.3); SODIUM, SERUM 142 MMOL/L (135-148)
[2016-05-26 07:05] LABS: BASOPHILS 0.2 %; BASOPHILS ABSOLUTE 0.02 10/3/uL (0.0-0.16); EOSINOPHILS 3.5 %; EOSINOPHILS ABSOLUTE 0.33 10/3/uL (0.0-0.53); HEMOGLOBIN 12.5 g/dL (13.6-17.8); LYMPHOCYTES 17.7 %; LYMPHOCYTES ABSOLUTE 1.65 10/3/uL (0.67-4.30); MEAN CORPUS HGB CONC 30.9 g/dL (32.0-36.0); MEAN CORPUSCULAR HEMOGLOB 27.5 pg (26.0-34.0); MONOCYTES 4.6 %; MONOCYTES ABSOLUTE 0.43 10/3/uL (0.21-1.20); NEUTROPHILS ABSOLUTE 6.88 10/3/uL (2.02-8.40); PLATELET COUNT 154 10/3/uL (150-400); RBC DISTRIBUTION WIDTH 15.1 % (12.0-16.0); RED CELL COUNT 4.55 10/6/uL (4.7-6.1); WHITE BLOOD CELLS 9.3 10/3/uL (4.5-10.5)
[2016-05-26 07:07] LABS: HEMATOCRIT 40.5 % (40.0-51.0); MANUAL DIFF NO %
[2016-05-27 05:36] LABS: BASOPHILS 0.2 %; BASOPHILS ABSOLUTE 0.02 10/3/uL (0.0-0.16); EOSINOPHILS ABSOLUTE 0.44 10/3/uL (0.0-0.53); HEMATOCRIT 40.7 % (40.0-51.0); HEMOGLOBIN 12.3 g/dL (13.6-17.8); IMMATURE GRANULOCYTES 0.1 %; IMMATURE GRANULOCYTES ABSOLUTE 0.01 10/3/uL (0.0-0.11); LYMPHOCYTES 16.2 %; LYMPHOCYTES ABSOLUTE 1.41 10/3/uL (0.67-4.30); MANUAL DIFF NO %; MEAN CORPUS HGB CONC 30.2 g/dL (32.0-36.0); MEAN CORPUSCULAR VOLUME 89.3 fL (80-100); MEAN PLATELET VOLUME 10.8 fL (9.2-13.0); MONOCYTES 4.1 %; MONOCYTES ABSOLUTE 0.36 10/3/uL (0.21-1.20); NEUTROPHILS 74.4 %; NEUTROPHILS ABSOLUTE 6.49 10/3/uL (2.02-8.40); PLATELET COUNT 153 10/3/uL (150-400); RBC DISTRIBUTION WIDTH 15.1 % (12.0-16.0); RED CELL COUNT 4.56 10/6/uL (4.7-6.1); WHITE BLOOD CELLS 8.7 10/3/uL (4.5-10.5)
[2016-05-27 05:52] LABS: BUN (BLOOD UREA NITROGEN) 24 MG/DL (6-23); CALCIUM, SERUM 8.8 MG/DL (8.5-10.4); CHLORIDE, SERUM 100 MMOL/L (96-112); CO2 (CARBON DIOXIDE) 35 MMOL/L (24-34); CREATININE 1.03 MG/DL (0.70-1.30); GFR AFRICAN AMERICAN 77 ML/MIN (>=60); GFR NON AFRICAN AMERICAN 66 ML/MIN (>=60); GLUCOSE, SERUM 123 MG/DL (60-99); POTASSIUM, SERUM 3.6 MMOL/L (3.5-5.3); SODIUM, SERUM 144 MMOL/L (135-148)
[2016-05-28 03:54] LABS: BASOPHILS 0.1 %; BASOPHILS ABSOLUTE 0.01 10/3/uL (0.0-0.16); EOSINOPHILS 5.6 %; EOSINOPHILS ABSOLUTE 0.49 10/3/uL (0.0-0.53); HEMATOCRIT 39.4 % (40.0-51.0); HEMOGLOBIN 11.5 g/dL (13.6-17.8); IMMATURE GRANULOCYTES 0.1 %; IMMATURE GRANULOCYTES ABSOLUTE 0.01 10/3/uL (0.0-0.11); LYMPHOCYTES 19.8 %; LYMPHOCYTES ABSOLUTE 1.72 10/3/uL (0.67-4.30); MANUAL DIFF NO %; MEAN CORPUS HGB CONC 29.2 g/dL (32.0-36.0); MEAN CORPUSCULAR HEMOGLOB 26.4 pg (26.0-34.0); MEAN CORPUSCULAR VOLUME 90.6 fL (80-100); MEAN PLATELET VOLUME 10.8 fL (9.2-13.0); MONOCYTES 2.1 %; MONOCYTES ABSOLUTE 0.18 10/3/uL (0.21-1.20); NEUTROPHILS 72.3 %; NEUTROPHILS ABSOLUTE 6.29 10/3/uL (2.02-8.40); PLATELET COUNT 142 10/3/uL (150-400); RBC DISTRIBUTION WIDTH 15.2 % (12.0-16.0); RED CELL COUNT 4.35 10/6/uL (4.7-6.1); WHITE BLOOD CELLS 8.7 10/3/uL (4.5-10.5)
[2016-05-28 03:58] LABS: BUN (BLOOD UREA NITROGEN) 25 MG/DL (6-23); CALCIUM, SERUM 8.5 MG/DL (8.5-10.4); CHLORIDE, SERUM 103 MMOL/L (96-112); CO2 (CARBON DIOXIDE) 37 MMOL/L (24-34); CREATININE 1.06 MG/DL (0.70-1.30); GFR AFRICAN AMERICAN 74 ML/MIN (>=60); GFR NON AFRICAN AMERICAN 64 ML/MIN (>=60); GLUCOSE, SERUM 122 MG/DL (60-99); PHOSPHORUS, SERUM 2.8 MG/DL (2.5-4.5); POTASSIUM, SERUM 3.7 MMOL/L (3.5-5.3); SODIUM, SERUM 146 MMOL/L (135-148)
[2016-05-31 04:54] LABS: A/G RATIO 0.7 (0.7-1.9); ALBUMIN 2.8 G/DL (3.5-5.0); ALKALINE PHOSPHATASE 52 U/L (45-117); CHLORIDE, SERUM 104 MMOL/L (96-112); CO2 (CARBON DIOXIDE) 35 MMOL/L (24-34); CREATININE 1.11 MG/DL (0.70-1.30); GFR AFRICAN AMERICAN 70 ML/MIN (>=60); GFR NON AFRICAN AMERICAN 61 ML/MIN (>=60); GLOBULIN 4.3 G/DL (2.5-4.1); POTASSIUM, SERUM 4.3 MMOL/L (3.5-5.3); PREALBUMIN 12.5 MG/DL (17.0-43.0); SGOT(AST) 15 U/L (5-40); SGPT(ALT) 32 U/L (5-65); SODIUM, SERUM 145 MMOL/L (135-148); TOTAL BILIRUBIN 0.6 MG/DL (0-1.2); TOTAL PROTEIN 7.1 G/DL (6.0-8.5)
[2016-05-31 04:55] LABS: BUN (BLOOD UREA NITROGEN) 31 MG/DL (6-23); GLUCOSE, SERUM 88 MG/DL (60-99); PHOSPHORUS, SERUM 3.7 MG/DL (2.5-4.5)
[2016-06-01] MEDS ORDERED: VOLTAREN1 % TOP (09:58)
[2016-06-01] MEDS ORDERED: LAN25 PO (09:59)
[2016-06-01] MEDS ORDERED: MULTI-VIT/F1 PO (10:01)
[2016-06-01] MEDS ORDERED: LOP25 PO (10:01)
[2016-06-01] MEDS ORDERED: DUONEB INH (10:04)
[2016-06-01] MEDS ORDERED: SYMBICORT 160/41 INH INH (10:07)
[2016-06-01] MEDS ORDERED: ELIQUIS 5 MG TAB5 MG PO (10:08)
== END 2016-06-01 11:20 | disposition hospice, home (50) | DRG 308 ==
LOC: ER 16:31 → 6NO 19:43 → CCU 05-22 15:08 → 5NO 05-29 16:00
PROVIDERS: Emergency Medicine; Internal Medicine; Internal Medicine Cardiovascular Disease; Internal Medicine Critical Care Medicine
PROC: 5A09457 Assistance with Respiratory Ventilation, 24-96 Consecutive Hours, Continuous Positive Airway Pressure (ICD-10-PCS; principal; 2016-05-22)
PROC: 02HV33Z Insertion of Infusion Device into Superior Vena Cava, Percutaneous Approach (ICD-10-PCS; 2016-05-23)
PROC: 0DH67UZ Insertion of Feeding Device into Stomach, Via Natural or Artificial Opening (ICD-10-PCS; 2016-05-24)
PROC: 3E0G76Z Introduction of Nutritional Substance into Upper GI, Via Natural or Artificial Opening (ICD-10-PCS; 2016-05-24)
DX: I48.91 Unspecified atrial fibrillation (principal); J96.02 Acute respiratory failure with hypercapnia; G93.41 Metabolic encephalopathy; I10 Essential (primary) hypertension; E78.2 Mixed hyperlipidemia; H40.9 Unspecified glaucoma; Z51.5 Encounter for palliative care; G47.33 Obstructive sleep apnea (adult) (pediatric); H35.30 Unspecified macular degeneration; Z66 Do not resuscitate; E66.9 Obesity, unspecified; Z68.37 Body mass index [BMI] 37.0-37.9, adult; Z79.82 Long term (current) use of aspirin; Z79.899 Other long term (current) drug therapy; Z88.8 Allergy status to other drugs, medicaments and biological substances; Z86.73 Personal history of transient ischemic attack (TIA), and cerebral infarction without residual deficits
CPT/HCPCS: 36569; 36600; 70450; 71010; 74000; 74230; 80048; 80053; 80069; 81001; 82140; 82272; 82330; 82607; 82728; 82805; 83540; 83550; 83615; 83735; 83880; 83986; 84100; 84134; 84155; 84165; 84443; 84484; 85025; 85610; 87086; 87641; 92611-GN; 93005; 94640; 94660; 96365; 96366; 97162-GP; 99291; A9270-GY; C1751; C8929; G8978-CL-GP; G8979-CK-GP; G8996-CK-GN; G8997-CK-GN; G8998-CK-GN; J0282; J1160; Q9957